=== PATIENT | male | born 1965 | race Caucasian/White ===

== ENCOUNTER 2022-11-23 16:02 | Emergency (ER) | payer OTHER, MEDICAID ==
[~2022-11-23] VITALS: Ht 172.7 cm; Wt 87.0 kg
[2022-11-23 16:22] VITALS: BP 130/79
== END 2022-11-23 21:39 | disposition left against medical advice (07) ==
LOC: ER 16:02
DX: Z53.21 Procedure and treatment not carried out due to patient leaving prior to being seen by health care provider (principal)
CPT/HCPCS: 99281